=== PATIENT | female | born 1990 | race American Indian/Alaskan Native ===

== ENCOUNTER 2019-11-08 07:40 | Emergency (ER) | payer MEDICAID ==
--- NOTE | 2019-11-08 08:12 | Emergency Department Report ---
HPI - General Chief Complaint: Psych Time Seen by Provider: 11/08/19 07:50 - HPI HPI: Room 16 The patient is a 28-year-old female presenting with a chief complaint of suicidal homicidal ideation. The patient has a history of bipolar disorder and schizoaffective disorder states she has been off her psychiatric medication for "a while." The patient states she's been feeling "out" of herself for "a while." He admits to auditory hallucinations and also admits to suicidal or homicidal ideation for "a while." Location: [See above] Duration: [See above] Quality: [See above] Severity: [See above] Timing: [See above] Context: [See above] Modifying factors: [See above] Associated signs and symptoms: [see above] ED Past Medical Hx - Past Medical History Previous Medical History?: Yes Hx Psychiatric Treatment: Yes (Schizo affective, bipolar disorder) - Surgical History Past Surgical History?: No - Family History Family history: no significant - Social History Smoking Status: Current Every Day Smoker (1/7 pack per day) Substance Use Type: None (eyes illicit drug use), Alcohol (occasional) - Medications Home Medications: Home Medications Medication Instructions Recorded Confirmed Last Taken Type No Known Home Medications [No 11/08/19 11/08/19 Unknown History Reported Home Medications] ED Review of Systems ROS: Stated complaint: PSYCH/OFF MEDS Other details as noted in HPI Constitutional: denies: no symptoms reported Eyes: denies: eye pain ENT: denies: throat pain Respiratory: no symptoms reported Cardiovascular: denies: chest pain Endocrine: no symptoms reported Gastrointestinal: denies: abdominal pain Genitourinary: denies: dysuria Musculoskeletal: denies: back pain Psychiatric: auditory hallucinations, homicidal thoughts, suicidal thoughts Physical Exam - Physical Exam Physical Exam: GENERAL: The patient is well-developed well-nourished female sitting in chair not appearing to be in acute distress. [] HEENT: Normocephalic. Atraumatic. Extraocular motions are intact. Patient has moist mucous membranes. NECK: Supple. Trachea midline CHEST/LUNGS: Clear to auscultation. There is no respiratory distress noted. HEART/CARDIOVASCULAR: Regular. There is no tachycardia. There is no gallop rub or murmur. ABDOMEN: Abdomen is soft, nontender. Patient has normal bowel sounds. There is no abdominal distention. SKIN: There is no rash. There is no edema. There is no diaphoresis. NEURO: The patient is awake, alert, and oriented. The patient is cooperative. The patient has normal speech MUSCULOSKELETAL: There is no evidence of acute injury. ED Medical Decision Making - Lab Data Result diagrams: 11/08/19 08:17 11/08/19 08:17 Laboratory Tests 11/08/19 11/08/19 11/08/19 08:17 08:17 08:17 WBC 6.9 RBC 4.61 Hgb 13.5 Hct 41.3 MCV 90 MCH 29 MCHC 33 RDW 15.7 H Plt Count 225 Lymph % (Auto) 21.1 [place] % (Auto) 6.5 Eos % (Auto) 0.2 Baso % (Auto) 0.6 Lymph # 1.5 [place] # 0.5 Eos # 0.0 Baso # 0.0 Seg Neutrophils % 71.6 H Seg Neutrophils # 5.0 Sodium 139 Potassium 4.4 Chloride 102.2 Carbon Dioxide 21 L Anion Gap 20 BUN 9 Creatinine 0.8 Estimated GFR > 60 BUN/Creatinine Ratio 11 Glucose 93 Calcium 9.4 Total Bilirubin 0.80 AST 15 ALT 8 Alkaline Phosphatase 85 Total Protein 7.7 Albumin 4.3 Albumin/Globulin Ratio 1.3 HCG, Qual Salicylates < 0.3 L Acetaminophen Plasma/Serum Alcohol 11/08/19 11/08/19 11/08/19 08:17 08:17 08:17 WBC RBC Hgb Hct MCV MCH MCHC RDW Plt Count Lymph % (Auto) [place] % (Auto) Eos % (Auto) Baso % (Auto) Lymph # [place] # Eos # Baso # Seg Neutrophils % Seg Neutrophils # Sodium Potassium Chloride Carbon Dioxide Anion Gap BUN Creatinine Estimated GFR BUN/Creatinine Ratio Glucose Calcium Total Bilirubin AST ALT Alkaline Phosphatase Total Protein Albumin Albumin/Globulin Ratio HCG, Qual Negative Salicylates Acetaminophen < 5.0 L Plasma/Serum Alcohol < 0.01 - Differential Diagnosis schizoaffective disorder, suicidal ideation, homicidal ideation Critical care attestation.: If time is entered above; I have spent that time in minutes in the direct care of this critically ill patient, excluding procedure time. ED Disposition Clinical Impression: Suicidal ideation, Homicidal ideation, Schizoaffective disorder Disposition: [id number]/TX-[id number] PSY HOSP/PSY UNIT Is pt being admited?: No Does the pt Need Aspirin: No Condition: Stable Time of Disposition: 08:16 (awaiting acceptance)
[2019-11-08 09:30] LABS: BUN/Creatinine Ratio 11; Blood Urea Nitrogen 9 mg/dL (7-17); Calcium 9.4 mg/dL (8.4-10.2)
[2019-11-08 09:31] LABS: Alanine Aminotransferase 8 units/L (7-56); Albumin 4.3 g/dL (3.9-5); Hemolysis Index 7
[2019-11-08 09:34] LABS: Basophils % (Auto) 0.6 % (0.0-1.8); Eosinophils % (Auto) 0.2 % (0.0-4.3); Hematocrit 41.3 % (30.3-42.9); Hemoglobin 13.5 gm/dl (10.1-14.3); Lymphocytes # (Auto) 1.5 K/mm3 (1.2-5.4); Lymphocytes % (Auto) 21.1 % (13.4-35.0); Mean Corpuscular HGB Conc 33 % (30-34); Mean Corpuscular Volume 90 fl (79-97); Monocytes # (Auto) 0.5 K/mm3 (0.0-0.8); Monocytes % (Auto) 6.5 % (0.0-7.3); Platelet Count 225 K/mm3 (140-440); Red Blood Count 4.61 M/mm3 (3.65-5.03); Red Cell Distribution Width 15.7 % (13.2-15.2)
[2019-11-08] MEDS ORDERED: LORazepam 2 MG/ML VIAL IM PRN (11:24)
[2019-11-08] MEDS ORDERED: diphenhydrAMINE 50 MG/ML VIAL IM PRN (11:24)
[2019-11-08] MEDS ORDERED: HALOPERIDOL LACTATE 5 MG/1 ML INJ IM PRN (11:24)
[2019-11-08 19:56] LABS: Bacteria,Urine 3+ /HPF (Negative); Bilirubin,Urine NEG (Negative); Blood,Urine NEG (Negative); Color,Urine Yellow (Yellow); Mucus,Urine 3+ /HPF; Protein,Urine <15 mg/dL mg/dL (Negative)
[2019-11-08 20:05] LABS: Benzodiazepines Screen,Urine PRESUMPTIVE NEGATIVE; Methadone Screen,Urine PRESUMPTIVE NEGATIVE; Opiate Screen,Urine PRESUMPTIVE NEGATIVE
[2019-11-08 20:28] LABS: Amphetamine Screen,Urine PRESUMPTIVE POSITIVE; Cannabinoid Screen,Urine PRESUMPTIVE POSITIVE; Cocaine Screen,Urine PRESUMPTIVE POSITIVE
[2019-11-09 08:21] VITALS: BP 130/79
== END 2019-11-09 09:10 ==
LOC: ED 07:40 → EEVIPCON 07:40 → ED 11-09 09:10
DX: F25.9 Schizoaffective disorder, unspecified (principal); F25.0 Schizoaffective disorder, bipolar type; F17.200 Nicotine dependence, unspecified, uncomplicated; F10.10 Alcohol abuse, uncomplicated
CPT/HCPCS: 36415; 80053; 80307; 81001; 84703; 85025; 87086; 96372; 99285; J1630; J2060; 80320; G0480